=== PATIENT | female | born 1980 | race African-American/Black ===

== ENCOUNTER 2018-11-23 14:19 | Emergency (ER) | payer OTHER, SELFPAY ==
[2018-11-23] MEDS ORDERED: Fluorescein Opthalmic Strip ONE (14:32)
== END 2018-11-23 14:50 | disposition home or self-care (01) ==
LOC: NAV ERS 14:19
DX: H10.9 Unspecified conjunctivitis (principal); F17.210 Nicotine dependence, cigarettes, uncomplicated
CPT/HCPCS: 99282